=== PATIENT | male | born 1945 | race Caucasian/White ===

== ENCOUNTER 2017-12-29 09:36 | Observation (INO) | payer OTHER, BC ==
[~2017-12-29] VITALS: Ht 177.8 cm; Wt 95.9 kg
[~2017-12-29 09:36] MED LIST: CELECOXIB200 MG PO; CLARITIN,ALAVAR10 MG PO; COUMADIN,JANTO7.5 MG PO; COUMADIN4 MG PO; DILT-XR240 MG PO; ENDOCET 5-3251 EACH PO; HYDROCHLOROTH12.5 M1 PO; HYDRODIURIL,O12.5 M2 PO; HYTRIN10 MG PO; LIPITOR10 MG PO; LIPITOR5 MG PO; LOVENOX100 MG/1 M PO; Mycostatin PO; PROTONIX40 MG PO; Protonix PO; SENNA PLUS TAB1 EACH PO; SIMVASTATIN40 M1 PO; TERAZOSIN HCL10 MG PO; TOPROL XL25 MG PO; TRIAMTERENE; TRICOR48 MG PO; Toprol XL PO; Tylenol Regular Stre PO; ZESTORETIC 20-1 EAC2 PO; Zestoretic,Prinzide PO; Zestril,Prinivil PO; Zocor PO
[2017-12-29 10:28] LABS: HEMATOCRIT 38.7 % (38.0-50.0); HEMOGLOBIN 13.2 G/DL (12.5-16.6); MCH 29.4 PG (29.0-34.0); MCHC 34.1 G/DL (30.0-36.0); MCV 86.2 FL (86-99); PLATELET COUNT 111 K/uL (156-360); RBC DIS.WIDTH-CV 14.6 % (11.8-14.6); RED BLOOD COUNT 4.49 M/uL (4.00-5.50); WHITE BLOOD COUNT 4.5 K/uL (4.1-10.2)
[2017-12-29 10:51] LABS: CHLORIDE 106 mEq/L (99-109); POTASSIUM 4.2 mEq/L (3.7-5.4); SODIUM 142 mEq/L (136-147)
[2017-12-29 10:53] LABS: GLUCOSE 102 mg/dL (70-99)
[2017-12-29 10:56] LABS: CREATININE 1.1 mg/dL (0.6-1.3); GFR ESTIMATE (CALCULATED) > 59 mL/min/ (58.99-99999)
[2017-12-29 10:57] LABS: UREA NITROGEN (BUN) 12 mg/dL (9-23)
[2017-12-29 11:10] LABS: INTER. NORMALIZED RATIO 3.5
[2017-12-29 11:12] LABS: PTT 44.8 SEC (25-37)
[2017-12-29 11:21] LABS: TROP-I INTERPRETATION NEGATIVE; TROPONIN-I 0.03 ng/mL (0.0-0.30)
[2017-12-29 13:12] LABS: THYROTROPIN (TSH) 2.4 MIU/L (0.4-5.5)
[2017-12-29] MEDS ORDERED: ZOCOR40 MG PO (13:30)
[2017-12-29 14:21] VITALS: BP 139/65
[2017-12-29 14:21] LABS: HDL CHOLESTEROL 36 MG/DL (Desirable>=40); LDL CHOLESTEROL 65 mg/dL (Desirable<100); NON-HDL CHOLESTEROL 86 mg/dL (Desirable<160); TOTAL CHOLESTEROL 122 mg/dL (Desirable<200); TRIGLYCERIDES 107 MG/DL (Normal: <150)
[2017-12-29 14:40] LABS: HEMOGLOBIN A1c (GLYCOHEMOGLOB) 4.9 % (Below 5.7)
[2017-12-29 20:05] VITALS: BP 132/69
[2017-12-29 23:37] VITALS: BP 111/58
[2017-12-30 03:44] VITALS: BP 110/62
[2017-12-30 06:26] LABS: HEMATOCRIT 36.6 % (38.0-50.0); HEMOGLOBIN 12.1 G/DL (12.5-16.6); MCH 28.7 PG (29.0-34.0); MCHC 33.1 G/DL (30.0-36.0); MCV 86.7 FL (86-99); PLATELET COUNT 106 K/uL (156-360); RBC DIS.WIDTH-CV 14.8 % (11.8-14.6); RBC DIS.WIDTH-SD 47.2 % (39-53); RED BLOOD COUNT 4.22 M/uL (4.00-5.50)
[2017-12-30 06:32] LABS: INTER. NORMALIZED RATIO 3.8
[2017-12-30 06:50] LABS: CHLORIDE 106 MEQ/L (99-109); GFR ESTIMATE (CALCULATED) > 59 mL/min/ (58.99-99999); GLUCOSE 99 mg/dL (70-99); POTASSIUM 3.8 MEQ/L (3.7-5.4); SODIUM 142 MEQ/L (136-147); UREA NITROGEN (BUN) 14 mg/dL (9-23)
[2017-12-30 08:28] VITALS: BP 146/66
[2017-12-30] MEDS ORDERED: ASPIR-LOW81 MG PO (10:13)
== END 2017-12-30 11:28 | disposition home or self-care (01) ==
LOC: EME 09:36 → EDOF 12:17 → ENRESERV 12:20 → 4SOUTH 13:47
PROVIDERS: Emergency Medicine; Internal Medicine
PROC: B246ZZZ Ultrasonography of Right and Left Heart (ICD-10-PCS; principal; 2017-12-29)
DX: G45.9 Transient cerebral ischemic attack, unspecified (principal); I48.2 Chronic atrial fibrillation; I10 Essential (primary) hypertension; M19.90 Unspecified osteoarthritis, unspecified site; E78.5 Hyperlipidemia, unspecified; Z95.2 Presence of prosthetic heart valve; I08.3 Combined rheumatic disorders of mitral, aortic and tricuspid valves; I27.20 Pulmonary hypertension, unspecified; Z79.01 Long term (current) use of anticoagulants; Z85.828 Personal history of other malignant neoplasm of skin; G89.29 Other chronic pain; M54.9 Dorsalgia, unspecified; Z90.49 Acquired absence of other specified parts of digestive tract; Z82.49 Family history of ischemic heart disease and other diseases of the circulatory system
CPT/HCPCS: 70450; 70544; 70549; 70551; 71046; 80048; 80061; 83036; 84443; 84484; 85027; 85610; 85730; 93005; 93306; 99281; 99284; G0378